=== PATIENT | female | born 1985 | race Hispanic/Latino ===

== ENCOUNTER 2021-11-01 15:38 | Day surgery (SDC) | payer OTHER ==
[2021-11-01] MEDS ORDERED: hydrALAZINE 20 MG/ML VIAL SLOW IVP PRN (17:00)
[2021-11-01 17:19] LABS: Bilirubin Neg (Negative); Blood, Urine Negative (Negative); Clarity Clear (Clear); Glucose, Urine (Dipstick) Normal (Negative); Ketone, Urine Negative (Negative); Leukocyte Negative (Negative); Nitrite Negative (Negative); Protein, Urine (Dipstick) Negative (Neg-Trace); Specific Gravity, Urine 1.005 (1.002-1.036); Urobilinogen Normal mg/dL (Less than 2)
[2021-11-01 17:25] LABS: Urine Culture Reflex No No
[2021-11-01 17:26] VITALS: BMI 31.4
[2021-11-01 17:28] LABS: Bacteria/HPF Rare-Few HPF (None Seen); RBC/HPF 0-3 HPF (0-3); Squamous Epithelial 0-3 HPF (0-3); WBC/HPF 0-3 HPF (0-3)
== END 2021-11-01 18:00 | disposition home or self-care (01) ==
LOC: CSHLD/OP 15:38
PROVIDERS: ATTEND Family Medicine
DX: O99.891 Other specified diseases and conditions complicating pregnancy (principal); N89.8 Other specified noninflammatory disorders of vagina; O09.523 Supervision of elderly multigravida, third trimester; Z79.82 Long term (current) use of aspirin; Z3A.37 37 weeks gestation of pregnancy
CPT/HCPCS: 81001; 87480; 87510; 87660; 99285

== ENCOUNTER 2021-11-11 14:57 | Outpatient (CLI) | payer OTHER ==
[2021-11-12 16:23] LABS: SARS-CoV-2 PCR by NAA Not Detected (NotDetected)
== END 2021-11-11 14:58 | disposition home or self-care (01) ==
LOC: CSHLAB 14:57
PROVIDERS: ATTEND Family Medicine
DX: Z20.822 Contact with and (suspected) exposure to COVID-19 (principal)
CPT/HCPCS: U0003; U0005